=== PATIENT | female | born 1970 | race Caucasian/White ===

== ENCOUNTER 2020-04-23 06:38 | Day surgery (SDC) | payer OTHER ==
[2020-04-16 12:15] VITALS: BMI 25.7
[2020-04-23] MEDS ORDERED: LIDOCAINE HCL 1%, 10 MG/ML (20ML VIAL) ONE (07:40)
[2020-04-23] MEDS ORDERED: BUPIVACAINE HCL/PF 0.25% (2.5MG/ML) 10 ML VIAL ONE (07:40)
[2020-04-23] MEDS ORDERED: MIDAZOLAM HCL 2 MG/2 ML SINGLE DOSE VIAL ONE (07:42)
[2020-04-23] MEDS ORDERED: SUCCINYLCHOLINE CHLORIDE 200 MG/10 ML SYRINGE ONE (07:42)
[2020-04-23] MEDS ORDERED: PROPOFOL 20 ML ONE ×3 (07:42)
[2020-04-23] MEDS ORDERED: LIDOCAINE HCL/PF 2% SDV 5ML VIAL ONE (07:43)
[2020-04-23] MEDS ORDERED: LIDOCAINE HCL 2% JELLY (5 ML/TUBE) ONE (07:43)
[2020-04-23] MEDS ORDERED: DEXAMETHASONE SOD PHOSPHATE 4 MG/1 ML VIAL ONE (08:18)
[2020-04-23] MEDS ORDERED: KETOROLAC TROMETHAMINE 30 MG/1 ML VIAL ONE (08:18)
[2020-04-23] MEDS ORDERED: ceFAZolin SODIUM 1 GM VIAL ONE (08:18)
[2020-04-23] MEDS ORDERED: ONDANSETRON 4 MG/2 ML VIAL ONE (08:18)
[2020-04-23] MEDS ORDERED: BUPIVACAINE HCL/PF 0.5% (5MG/ML) 10 ML VIAL IJ ONE (08:39)
[2020-04-23] MEDS ORDERED: BUPIVACAINE HCL/PF 0.5% (5MG/ML) 10 ML VIAL ONE (09:00)
[2020-04-23] MEDS ORDERED: BACITRACIN 15 GM TUBE TOPICAL OINTMENT ONE (09:00)
[2020-04-23] MEDS ORDERED: ALBUTEROL SO4 HFA INHALER IH PRN (09:01)
[2020-04-23] MEDS ORDERED: oxyCODONE HCL 5 MG TABLET PO PRN ×4 (09:01→09:03)
[2020-04-23] MEDS ORDERED: ONDANSETRON 4 MG/2 ML VIAL IVPB PRN (09:01)
[2020-04-23] MEDS ORDERED: PROMETHAZINE HCL 25 MG/1 ML VIAL IVPUSH PRN (09:03)
[2020-04-23] MEDS ORDERED: ONDANSETRON 4 MG/2 ML VIAL IVPUSH PRN (09:03)
[2020-04-23] MEDS ORDERED: LACTATED RINGERS SOLUTION 1,000 ML IV SCH (09:15)
[2020-04-23 09:38] VITALS: TEMP 98.1
[2020-04-23 09:58] VITALS: BP 122/75; PULSE 72
== END 2020-04-23 09:59 | disposition home or self-care (01) ==
LOC: FASU 06:38
PROVIDERS: ATTEND Plastic Surgery
PROC: 0LB70ZZ Excision of Right Hand Tendon, Open Approach (ICD-10-PCS; principal; 2020-04-23 08:30)
DX: D36.10 Benign neoplasm of peripheral nerves and autonomic nervous system, unspecified (principal)
CPT/HCPCS: 81025; 88305-TC; 94760